=== PATIENT | male | born 1990 | race Hispanic/Latino ===

== ENCOUNTER 2016-05-30 20:44 | Emergency (ER) | payer SELFPAY ==
[~2016-05-30 20:44] MED LIST: AMIL5TAB2 PO; ASPI325T32 PO; HYG25 PO; POTA10TA19 PO; SPIR100T3 PO
[2016-05-30 20:50] VITALS: BP 149/101; PULSE 103; RESP 16; O2SAT 99
--- NOTE | 2016-05-30 22:22 | ED.REPORT ---
HPI-General Illness Date of Service May 30, 2016 ED Provider: Daylin Casas MD 25 year old male with a hx of HTN and kidney disease who presents to the ED due to palpitations and a parietal headache. Pt currently does not have a prescription for his BP medications. He states he is unable to afford his current meds and has not taken them for 1 week. Pt denies SOB, fever, chills, urinary problems, vision changes and CP. Nursing Notes Stated Complaint: FAST HEART RATE, HEADACHE Chief Complaint: General Complaint Nursing Notes Reviewed: Yes Allergies: Coded Allergies: No Known Allergies (Unverified Allergy, Unknown, 10/31/14) Scheduled Amiloride (Amiloride) 5 Mg Tablet 10 MG PO DAILYWM Aspirin (Aspirin) 325 Mg Tablet 325 MG PO DAILY Chlorthalidone (Chlorthalidone) 25 Mg Tablet 25 MG PO DAILY Potassium Citrate ER (Potassium Citrate ER) 10 Meq Tablet 30 MEQ PO TID Spironolactone (Spironolactone) 100 Mg Tablet 100 MG PO DAILY General Time Seen by MD: 22:21 Chief Complaint Headache, Other Hx Obtained From: Patient Arrived By: Walk-in Sudden in Onset?: No Onset Occurred: More than a week ago... (2 weeks) Symptom Duration: Intermittent Severity: Current: No pain currently Pertinent Negative: Pt denies other symptoms Pertinent Negative: Relieved by nothing Past Medical History Past Medical History 1. Cystic kidney disease. 2. 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 4. 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 5. Hypertension. 6. Chronic kidney disease, stage 3. Past Surgical History denies Family History Noncontributory Smoking History Never Smoker Social History Alcohol Use: "Social" Drug Use: Denies drug use Other Social History: Good social support, Local resident Occupation lives with Mom Ambulatory Status Independent Review of Systems Full Review of Systems Constitutional: Denies: Chills, Fever Respiratory: Denies: Non-productive cough, Shortness of breath Cardiovascular: Reports: Palpitations, Denies: Chest pain GI: Denies: Abdominal pain, Diarrhea, Nausea, Vomiting Male: Denies Dysuria, Denies Urinary frequency Skin: Denies Diaphoresis, Denies Rash Neurologic: Reports: Headache, Denies: Change LOC Complete sys rev & neg: except as marked. Physical Exam Vital Signs Vital Signs Date Time Temp Pulse Resp B/P Pulse Ox O2 Delivery O2 Flow Rate FiO2 05/31/16 00:03 86 20 117/78 94 Room Air 05/30/16 20:50 36.9 103 16 149/101 99 Room Air Initial VS: Reviewed, Vital signs abnormal General/Constitutional: Well-developed, Well-nourished Head / Eyes: Atraumatic, Normocephalic, PERRL ENT: Mucous membranes moist, Conjunctiva normal, No scleral icterus Neck: Supple, Full range of motion Respiratory: Breath sounds normal, Clear to auscultation, No respiratory distress Cardiovascular: Regular rate & rhythm, Heart sounds normal, Intact distal pulses Abdomen / GI: Soft, Non-tender, No guarding, No rebound, No distention Extremities: Vascular intact, Neuro intact Skin: Warm, Dry, No cyanosis Neurologic: Alert, Oriented, Nonfocal Psychiatric: Mood/affect normal, Behavior normal, Normal thought content Interpretation & Diagnostics Lab Results Interpretation Result Diagram: 05/30/16223405/30/162234 Test 05/30/16 22:35 White Blood Count 10.5th/mm3 (3.8-10.1) Red Blood Count 6.73mil/mm3 (4.40-5.80) Hemoglobin 20.0g/dL (13.8-17.2) Hematocrit 58.1% (41.0-50.0) Mean Corpuscular Volume 86.3fL (81-100) Mean Corpuscular Hemoglobin 29.7pg (27.0-35.0) Mean Corpuscular Hemoglobin Concent 34.4% (32.0-37.0) Red Cell Distribution Width 14.1% (12.3-15.4) Platelet Count 205bil/L (150-400) Neutrophils (%) (Auto) 62.7% (40-74) Lymphocytes (%) (Auto) 23.4% (14-46) Monocytes (%) (Auto) 10.7% (4-12) Eosinophils (%) (Auto) 1.7% (0-5) Basophils (%) (Auto) 0.6% (0-3) Sodium Level 137mEq/L (134-144) Potassium Level 4.5mEq/L (3.5-5.2) Chloride Level 99mEq/L (97-108) Carbon Dioxide Level 24mmol/L (18-29) Blood Urea Nitrogen 35mg/dL (6-20) Creatinine 2.72mg/dL (0.76-1.27) Estimat Glomerular Filtration Rate 30mL/min (>59) Glucose Level 114mg/dL (60-99) Calcium Level 10.5mg/dL (8.5-10.1) Magnesium Level 2.6mg/dL (1.6-2.6) Thyroid Stimulating Hormone (TSH) 2.450uIU/mL (0.450-4.500) Hold Zavala Top Tube Received (Received) General Lab Results Interp 1: Labs reviewed ECG Interpretation Time: 20:58 Interpreted by: ED physician Normal ECG Interpretation: Normal rate (87), Normal sinus rhythm, Normal axis, Normal intervals X-Ray Chest Interpretation View: Portable, 1 view Interpretation / Wet Read by: Wet read ED physician NL X-Ray Chest Findings: No acute disease Re-Eval/Medical Decision Med Decision/Clinical Course This patient presents with palpitations and headache, he is noncompliant with medications and has been without them for 1 week. As his headache there are no concerning features that would make me think he has subarachnoid hemorrhage, meningitis, or migraine. This palpitations he was tachycardiac, this resolved with treatment here. He is encouraged to follow-up with his doctor for his medications and figure out a way for him to cost expensive medications obtain insurance he can afford them. Source of Hx: Old records Time of Eval: 23:22 Re-Evaluation/Progress Note: Pt feels "jittery" with medications. His headache has improved. Discussed plan for discharge and follow up. All questions addressed. Counseled Regarding: Diagnosis, Lab results, Need for follow-up, When/why to return to ED Discharge & Departure Primary Impression: Palpitations Additional Impressions: HTN (hypertension) Hypertension type: unspecified secondary hypertension Hypertension goal: unspecified goal Qualified Code: I15.9 - Secondary hypertension, unspecified Renal insufficiency Disposition: Home Discharge Condition All VS Reviewed: Yes Condition: Improved Patient Instructions: Chronic Hypertension (ED), Palpitations (ED) Additional Instructions: It is very dangerous for you to not have your blood pressure medications. You need to work with your doctor to get your medication or to get help finding another option. You may need to switch medications. Seek care for any new or concerning symptoms. Referrals: NOPCP (PCP) Scribe Attestation Portions of this note were transcribed by Nila Dodge. I, (Dr. Casas) personally performed the history, physical exam and medical decision-making; I reviewed and confirmed the accuracy of the information in the transcribed note. Signed by: Nila Dodge. 05/30/2016, 2253 Daylin Casas MD May 30, 2016 22:22 Nila Dodge May 30, 2016 22:25
[2016-05-30 22:40] LABS: BASOPHILS % (AUTO) 0.6 % (0-3); EOSINOPHILS % (AUTO) 1.7 % (0-5); MONOCYTES % (AUTO) 10.7 % (4-12); Mean Corpuscular Hemoglobin 29.7 pg (27.0-35.0); Mean Corpuscular Volume 86.3 fL (81-100); NEUTROPHILS % (AUTO) 62.7 % (40-74); Platelet Count 205 bil/L (150-400)
[2016-05-30] MEDS ORDERED: ProchlorPERazine 5 mg/mL 2 mL Inj IVPUSH ONE (22:55)
[2016-05-30] MEDS ORDERED: 0.9% Sodium Chloride 50 ML ONE (22:58)
[2016-05-30 23:11] LABS: Magnesium 2.6 mg/dL (1.6-2.6)
[2016-05-30] MEDS ORDERED: HYDROmorphone 0.5 mg/0.5 mL iSecure Syringe IVPUSH ONE (23:25)
[2016-05-31 00:03] VITALS: BP 117/78; PULSE 86; RESP 20; O2SAT 94
[2016-05-31 01:01] VITALS: BP 117/78; PULSE 86; RESP 20; O2SAT 97
--- NOTE | 2016-05-31 08:33 | DRSVH ---
PROCEDURE: X-RAY CHEST ONE VIEW, PORTABLE ([id number]) INDICATIONS: palpitations TECHNIQUE: One view of the chest was acquired. COMPARISON: [facility], CR, CHEST 2VW, 10/31/2014, 19:37. FINDINGS: Surgical changes and devices: None. Lungs and pleura: No pleural effusions or pneumothorax. Lungs are clear. Mediastinum: Mediastinal contours appear normal. Heart size is normal. Bones and chest wall: No suspicious bony lesions. Overlying soft tissues appear unremarkable. IMPRESSION: No acute process. Dictated by: Pat Alfred M.D. on 05/31/2016 at 8:31 Approved by: Pat Alfred M.D. on 05/31/2016 at 8:31
== END 2016-05-31 01:02 | disposition home or self-care (01) ==
LOC: SED 20:44
DX: R00.2 Palpitations (principal); I13.10 Hypertensive heart and chronic kidney disease without heart failure, with stage 1 through stage 4 chronic kidney disease, or unspecified chronic kidney disease; N18.3 Chronic kidney disease, stage 3 (moderate); N25.1 Nephrogenic diabetes insipidus; Z79.82 Long term (current) use of aspirin
CPT/HCPCS: 36415; 71010; 80048; 83735; 84443; 85025; 96361; 96374; 96375; 99285; J0780; J1170; J1200; J2060